=== PATIENT | male | born 1950 | race Caucasian/White ===

== ENCOUNTER 2018-11-16 11:31 | Outpatient (CLI) | payer MEDICARE, OTHER, SELFPAY ==
[2018-11-16 13:24] LABS: Calculated LDL 145; Cholesterol 237 mg/dL (50-200); HDL Cholesterol 81 mg/dL (40-60); TSH 3.56 uIU/mL (0.358-3.74); Triglyceride 58 mg/dL (30-150)
[2018-11-17 10:25] LABS: PSA, Screening 3.2 ng/ml (0-4.5)
== END 2018-11-16 11:51 ==
PROVIDERS: PCP Emergency Medicine; Visit Provider Emergency Medicine
DX: E03.9 Hypothyroidism, unspecified (principal); Z13.6 Encounter for screening for cardiovascular disorders; Z12.5 Encounter for screening for malignant neoplasm of prostate
CPT/HCPCS: 36415; 80061; 83721; 84153; 84443

== ENCOUNTER 2019-09-11 12:36 | Outpatient (CLI) | payer MEDICARE, OTHER, SELFPAY ==
[2019-09-13 20:04] LABS: SARS-CoV-2 RNA Undetected (Undetected); SARS-CoV-2 Specimen Source Nasopharynx
== END 2019-09-11 12:56 ==
PROVIDERS: PCP Emergency Medicine; Visit Provider Nurse Practitioner Family
DX: J02.9 Acute pharyngitis, unspecified (principal); Z11.59 Encounter for screening for other viral diseases
CPT/HCPCS: 87449; U0003

== ENCOUNTER → 2019-12-04 08:34 | Outpatient (BNVA) | payer MEDICARE, OTHER, SELFPAY | PROVIDERS: PCP Emergency Medicine; Referring Provider Emergency Medicine; Visit Provider Nurse Practitioner Gerontology | DX: N40.1 Benign prostatic hyperplasia with lower urinary tract symptoms (principal); R35.0 Frequency of micturition | CPT/HCPCS: 99204; 99215 ==

== ENCOUNTER 2019-12-11 08:02 | Outpatient (CLI) | payer MEDICARE, OTHER, SELFPAY ==
[2019-12-11 09:16] LABS: Calculated LDL 167 mg/dL (<100); Cholesterol 261 mg/dL (<200); HDL Cholesterol 84 mg/dL (40-60); TSH 2.59 uIU/mL (0.36-3.74); Triglyceride 53 mg/dL (<150)
[2019-12-12 09:16] LABS: PSA, Screening 3.3 ng/mL (0.0-4.5)
== END 2019-12-11 08:22 ==
PROVIDERS: PCP Emergency Medicine; Visit Provider Nurse Practitioner Gerontology
DX: E03.9 Hypothyroidism, unspecified (principal); N40.1 Benign prostatic hyperplasia with lower urinary tract symptoms; Z12.5 Encounter for screening for malignant neoplasm of prostate
CPT/HCPCS: 80061; 84153; 84443

== ENCOUNTER 2020-11-22 19:35 | Outpatient (REF) | payer MEDICARE, OTHER, SELFPAY ==
[2020-11-22 18:36] LABS: Calculated LDL 130 mg/dL (<100); Cholesterol 223 mg/dL (<200); HDL Cholesterol 83 mg/dL (40-60); TSH 1.35 uIU/mL (0.36-3.74); Triglyceride 52 mg/dL (<150)
[2020-11-25 10:13] LABS: PSA, Diagnostic 3.6 ng/mL (0.0-4.5)
== END 2020-11-22 19:36 | disposition home or self-care (01) ==
LOC: LBN 19:35
PROVIDERS: PCP Emergency Medicine; Visit Provider Emergency Medicine
DX: E78.5 Hyperlipidemia, unspecified (principal); E03.2 Hypothyroidism due to medicaments and other exogenous substances; N40.0 Benign prostatic hyperplasia without lower urinary tract symptoms
CPT/HCPCS: 80061; 84153; 84443

== ENCOUNTER 2020-11-28 02:38 | Outpatient (CLI) | payer MEDICARE, SELFPAY ==
--- NOTE | 2020-11-28 08:45 | DI.RAD_ITS ---
Exam(s) XR SHOULDER RT COMPLETE 2+V EXAM: XR SHOULDER RT COMPLETE 2+V CLINICAL HISTORY: right shoulder pain,M25.511. TECHNIQUE: 2D digital imaging was performed. COMPARISON: None FINDINGS: There is a dorsal fusion plate across healed fracture site in the right clavicle. No obvious hardwar e loosening no radiographic evidence of osteomyelitis. However, 1 of the more laterally located scre ws is not flush with the plate. Possibly significant. AC joint is not distracted. There is no radi ographic evidence of osteomyelitis. IMPRESSION: DATA REPOSITORY: RADIATION DOSE DELIVERED:
== END 2020-11-28 02:58 ==
PROVIDERS: PCP Emergency Medicine; Visit Provider Emergency Medicine
DX: M25.511 Pain in right shoulder (principal)
CPT/HCPCS: 73030

== ENCOUNTER → 2020-12-05 08:28 | Outpatient (BNVA) | payer MEDICARE, SELFPAY | PROVIDERS: PCP Emergency Medicine; Referring Provider Emergency Medicine; Visit Provider Nurse Practitioner Gerontology | DX: N40.0 Benign prostatic hyperplasia without lower urinary tract symptoms (principal) | CPT/HCPCS: 99213 ==

== ENCOUNTER 2020-12-17 16:20 | Outpatient (REF) | payer MEDICARE, SELFPAY ==
[2020-12-17 20:50] LABS: Abs Immature Grans 0.03 10^3/uL (0.0-0.06); Absolute Basophil Count 0.05 10^3/uL (0.0-0.2); Absolute Eosinophil Count 0.01 10^3/uL (0.0-0.7); Absolute Lymphocyte Count 3.09 10^3/uL (1.2-3.4); Absolute Monocyte Count 0.98 10^3/uL (0.1-0.8); Absolute Neutrophil Count 5.38 10^3/uL (1.2-6.7); Basophils % 0.5; Eosinophils % 0.1; HCT 39.9 % (40.0-50.0); HGB 13.2 g/dL (13.5-17.5); Immature Grans % 0.3; Lymphocytes % 32.4; MCH 29.9 pg (27.0-33.0); MCHC 33.1 % (32.0-36.0); MCV 90.5 fL (80-95); MPV 10.5 fL (8.0-11.0); Monocytes % 10.3; Neutrophils % 56.4; Nucleated RBC 0 %; Platelet Count 201 10^3/uL (130-400); RBC 4.41 10^6/uL (4.36-5.78); RDW 13.4 % (11.8-14.1); WBC 9.54 10^3/uL (4.4-10.8)
[2020-12-17 20:54] LABS: ESR 11 mm/hr (0-20)
[2020-12-17 21:07] LABS: ALT 130 U/L (16-63); AST 45 U/L (15-37); Albumin 3.5 g/dL (3.4-5.0); Alkaline Phosphatase 83 U/L (46-116); Amylase 80 U/L (25-115); Anion Gap 7.9 mmol/L (3-11); BUN 13 mg/dL (7-18); Bilirubin, Total 0.4 mg/dL (0.2-1.0); CO2 28.1 mmol/L (21.0-32.0); CREATININE 1.1 mg/dL (0.70-1.30); Calcium 8.4 mg/dL (8.5-10.1); Chloride 102 mmol/L (98-107); Glucose 89 mg/dL (74-106); Lipase 295 U/L (73-393); Potassium 4.4 mmol/L (3.5-5.1); Sodium 138 mmol/L (136-145); Total Protein 6.9 g/dL (6.4-8.2)
[2020-12-18 16:54] LABS: CRP, High Sensitivity >15.00 mg/L (See Note)
[2020-12-19 10:21] LABS: Lyme Ab w Rflx to Lyme Confirm Negative (Negative)
[2020-12-20 09:37] LABS: B. miyamotoi PCR Negative (Negative); Babesia divergens/MO-1 Negative (Negative); Babesia duncani Negative (Negative); Babesia microti Negative (Negative); Ehrlichia chaffeensis Negative (Negative); Ehrlichia ewingii/canis Negative (Negative); Ehrlichia muris eauclairensis Negative (Negative)
[2020-12-20 11:04] LABS: Anaplasma phagocytophilum Positive (Negative)
== END 2020-12-17 16:21 | disposition home or self-care (01) ==
LOC: LBN 16:20
PROVIDERS: PCP Emergency Medicine; Visit Provider Nurse Practitioner Family
DX: R51.9 Headache, unspecified (principal); R53.83 Other fatigue; R10.12 Left upper quadrant pain; A68.9 Relapsing fever, unspecified
CPT/HCPCS: 80053; 83690; 85652; 86141; 87798; 82150; 85025; 86618

== ENCOUNTER 2021-01-20 14:34 | Outpatient (CLI) | payer MEDICARE, SELFPAY ==
--- NOTE | 2021-01-20 11:15 | DI.RAD_ITS ---
Exam(s) XR WRIST LT COMPLETE EXAM: XR WRIST LT COMPLETE CLINICAL HISTORY: L wrist pain. TECHNIQUE: 2D digital imaging was performed. COMPARISON: No exams were available for comparison FINDINGS: No fractures distal radius and ulna no significant ulnar variance. Scaphoid appears unremarkable. O n the lateral view there is a round 2 millimeter calcific density seen just dorsal to the distal radi us. This of questionable significance. Possible accessory ossicle. No overlying soft tissue swelli ng. No carpal dislocation. There are moderate degenerative changes in the 1st carpometacarpal joint noted. IMPRESSION: DATA REPOSITORY: RADIATION DOSE DELIVERED:
== END 2021-01-20 14:35 | disposition home or self-care (01) ==
LOC: DIORS 14:34
PROVIDERS: PCP Emergency Medicine; Referring Provider Emergency Medicine; Visit Provider Student in an Organized Health Care Education/Training Program
DX: M25.532 Pain in left wrist (principal); M19.032 Primary osteoarthritis, left wrist; M25.511 Pain in right shoulder
CPT/HCPCS: 99213; 73110

== ENCOUNTER 2021-10-22 02:18 | Outpatient (CLI) | payer MEDICARE, SELFPAY ==
[2021-10-22 15:06] LABS: Source Nasal/Nares
[2021-10-23 01:23] LABS: COVID-19 PCR Negative (Negative)
== END 2021-10-22 02:19 | disposition home or self-care (01) ==
LOC: LBO 02:19
PROVIDERS: PCP Family Medicine; Visit Provider Podiatrist
DX: Z20.822 Contact with and (suspected) exposure to COVID-19 (principal); Z01.818 Encounter for other preprocedural examination
CPT/HCPCS: 87635; U0005

== ENCOUNTER 2021-10-24 07:22 | Day surgery (SDC) | payer MEDICARE, SELFPAY ==
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
[2021-10-24 07:30] VITALS: BP 123/86; PULSE 77; RESP 16; TEMP 36.3; O2SAT 97
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
[2021-10-24] MEDS: Lactated Ringers 1,000 ML 80 ML IV (07:56)
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
[2021-10-24 08:27] VITALS: BMI 24.3
[2021-10-24] MEDS: ceFAZolin 1 GM/50 ML BAG IVPB (09:25)
[2021-10-24] MEDS: Bupivacaine 0.5% Pres-Free 30 ML VIAL (09:39)
[2021-10-24] MEDS: Lidocaine 1% Pres-Free 30 ML VIAL (09:39)
[2021-10-24] MEDS: Dexamethasone 4 MG/ML VIAL (09:52)
--- NOTE | 2021-10-24 10:07 | W.PM.DSUDISC ---
Discharge Plan Disposition Patient Disposition: HOME Condition: Good Discharge Details Reason For Visit: Correction bunionette deformity right foot Attending Provider: Mychal Garcia Primary Care Provider: Jameel Levy Home Meds and New Rx's Prescriptions: No Action levothyroxine [Synthroid] 125 mcg tablet 125 mcg PO DAILY Qty: 90 3RF rosuvastatin 20 mg tablet 20 mg PO DAILY Qty: 90 3RF Discharge Instructions Activity:: Elevate Remove Dressings/Wound Care:: Do Not Remove Shower/Bathe:: Cover Diet:: Normal Diet Discharge Orders Discharge Orders: Discharge Order (Routine); Ordered 10/24/21 Ordered By: Mychal Garcia DS: Diagnosis Discharge Diagnosis (1) Bunionette of right foot: Start date: 10/24/21 Start time: 09:07 Status: Acute
--- NOTE | 2021-10-24 10:08 | W.PM.OP ---
Date of service: 10/24/21 Time of Service: 09:08 Operative Note Operative Note DATE OF PROCEDURE: 10/24/21 PRE-OP DIAGNOSIS: Bunionette deformity right foot PROCEDURE: Partial fifth metatarsal head resection right foot SURGEON: Mychal Garcia Refer to Anesthesia Record ESTIMATED BLOOD LOSS: 1 TOURNIQUET TIME: 18 Indications: 71-year-old male with chronic pain over the lateral aspect of his right fifth metatarsal head where a bunionette deformity is noted. Pain is interfering with shoe gear, daily activities and enjoyment of life. Nonoperative treatments have failed to provide sufficient relief of symptoms. He understands risk and complications of surgery pertaining to pain, scarring, infection, nerve injury, ongoing discomfort in the region potentially requiring revisional procedure. All questions have been answered in detail. Informed consent has been obtained. Procedure Description: Yuri was brought to the operative suite placed in the supine position with the right foot prepped and draped in the usual sterile podiatric fashion. Anesthesia performed a block of the right fifth ray utilizing 10 cc 50: 50 mixture 1% lidocaine plain, 0.5% Marcaine plain. Timeout was performed for safe surgery. The right foot was exsanguinated and a well-padded ankle tourniquet inflated to 250 mmHg. Attention was directed to the dorsal lateral aspect of the right fifth MPJ where a 3 cm incision was made lateral parallel to the extensor tendon. The incision was deepened in controlled depth fashion with hemostasis acquired with electrocautery if needed. Dissection was carried down to the joint capsule which was incised along its lateral dorsal component. The joint capsule was reflected and a large medial hyperostosis from the fifth metatarsal head was noted. With osteotome and mallet the lateral enlargement was resected. All rough and bony edges were rasped smooth. Excellent correction was noted upon bony resection. Copious irrigation was performed. The joint capsule was repaired with simple interrupted suture 3-0 Vicryl. The skin was then coapted with simple interrupted suture of 4-0 nylon. 4 mg of dexamethasone phosphate deeply infused around the incision. Xeroform gauze fluff compression dressings were applied. Tourniquet was released at 18 minutes with vascularity returning immediately to all toes. Yuri left the OR with vital signs stable vascular status intact sharp and sponge counts were correct. He will be followed by myself in the office next week.
[2021-10-24 10:10] VITALS: BP 101/75; PULSE 63; RESP 16; TEMP 36.2; O2SAT 98
--- NOTE | 2021-10-24 10:17 | W.ANESPOSTOP ---
Postoperative Evaluation Date, Time and Location Date Performed: 10/24/21 Time Performed: 10:18 Patient Location: Day Surgery Unit Vital Signs Most Recent Imported Vital Signs: Most Recent Vital Signs Temp Pulse Resp BP Pulse Ox 36.3 C L 77 16 123/86 97 10/24/21 07:30 10/24/21 07:30 10/24/21 07:30 10/24/21 07:30 10/24/21 07:30 Most Recent Manually Entered Vital Signs: Adult Blood Pressure: 110/66 Heart Rate: 66 Respirations: 10 Oxygen Saturation (%): 98 Temperature (C): 36.3 C Pain Score (0-10 Scale): 0 Assessment Mental Status: Awake (Alert & Oriented to Patient Baseline) Airway and Respiratory Function: Patent airway with normal (patient baseline) respiratory exam Cardiovascular Function: Hemodynamically Stable Hydration Status: Adequately Hydrated Nausea & Vomiting: No Nausea or Vomiting Pain: Pt. Denies Any Pain Peripheral Nerve Block: Patient did not receive a nerve block
[2021-10-24 10:19] VITALS: BP 110/66; PULSE 66; RESP 10; TEMPC 36.3; O2SAT 98
--- NOTE | 2021-10-24 10:21 | W.ANESPOSTOP ---
Postoperative Evaluation Date, Time and Location Date Performed: 10/24/21 Time Performed: 09:21 Patient Location: Day Surgery Unit Vital Signs Most Recent Imported Vital Signs: Most Recent Vital Signs Temp Pulse Resp BP Pulse Ox 36.3 C L 77 16 123/86 97 10/24/21 07:30 10/24/21 07:30 10/24/21 07:30 10/24/21 07:30 10/24/21 07:30 Most Recent Vital Signs Temp Pulse Resp BP Pulse Ox 36.3 C L 77 16 123/86 97 10/24/21 07:30 10/24/21 07:30 10/24/21 07:30 10/24/21 07:30 10/24/21 07:30 Assessment Mental Status: Awake (Alert & Oriented to Patient Baseline) Airway and Respiratory Function: Patent airway with normal (patient baseline) respiratory exam Cardiovascular Function: Hemodynamically Stable Hydration Status: Adequately Hydrated Nausea & Vomiting: No Nausea or Vomiting Pain: Pt. Denies Any Pain Peripheral Nerve Block: Other (local by surgeon)
[2021-10-24 10:40] VITALS: BP 107/75; PULSE 59; RESP 18; TEMP 36.2; O2SAT 99
== END 2021-10-24 11:05 | disposition home or self-care (01) ==
PROVIDERS: PCP Family Medicine; Visit Provider Podiatrist
PROC: (CPT 28288; principal; 2021-10-24 09:30)
DX: M21.621 Bunionette of right foot (principal); N40.1 Benign prostatic hyperplasia with lower urinary tract symptoms; E78.5 Hyperlipidemia, unspecified; E03.9 Hypothyroidism, unspecified
CPT/HCPCS: 28110; J0690; J1100; J1885; J2405

== ENCOUNTER → 2021-12-18 10:48 | Outpatient (BNVA) | payer MEDICARE, SELFPAY | PROVIDERS: PCP Family Medicine; Referring Provider Emergency Medicine; Visit Provider Nurse Practitioner Gerontology | DX: N40.1 Benign prostatic hyperplasia with lower urinary tract symptoms (principal); R35.0 Frequency of micturition; R35.1 Nocturia | CPT/HCPCS: 51798; 99214 ==

== ENCOUNTER 2021-12-23 08:49 | Outpatient (CLI) | payer MEDICARE, SELFPAY ==
[2021-12-23 13:14] LABS: Calculated LDL 115 mg/dL (<100); Cholesterol 214 mg/dL (<200); HDL Cholesterol 88 mg/dL (40-60); TSH (W/Ref FT4) 3.66 uIU/mL (0.36-3.74); Triglyceride 58 mg/dL (<150)
== END 2021-12-23 08:50 | disposition home or self-care (01) ==
LOC: LOS 08:50
PROVIDERS: PCP Family Medicine; Referring Provider Family Medicine; Visit Provider Family Medicine
DX: E78.5 Hyperlipidemia, unspecified (principal); E03.9 Hypothyroidism, unspecified
CPT/HCPCS: 36415; 80061; 84443

== ENCOUNTER → 2022-03-03 01:40 | Outpatient (CLI) | payer MEDICARE, SELFPAY ==
--- NOTE | 2022-03-03 07:15 | DI.US_ITS ---
Exam(s) US HERNIA EXAM: US HERNIA CLINICAL HISTORY: evaluate right inguinal hernia,k40.90. TECHNIQUE: Ultrasound was performed using standard protocol. COMPARISON: No exams were available for comparison FINDINGS: Sonographic assessment utilizing grayscale and color Doppler imaging was performed and targeted to th e area of clinical concern. Sonographic findings show a fat containing right inguinal hernia. The opening is approximately 0.7 c m. There is a right inguinal lymph node measuring 0.8 x 0.9 x 0.5 cm. It is grossly unremarkable. IMPRESSION: Findings most suggestive of a small fat containing right inguinal hernia. DATA REPOSITORY:
== END ==
PROVIDERS: PCP Family Medicine; Visit Provider Nurse Practitioner Family
DX: K40.90 Unilateral inguinal hernia, without obstruction or gangrene, not specified as recurrent (principal)
CPT/HCPCS: 76857

== ENCOUNTER → 2022-03-25 10:55 | Outpatient (BNVA) | payer MEDICARE, SELFPAY | PROVIDERS: PCP Family Medicine; Referring Provider Family Medicine; Visit Provider Nurse Practitioner Gerontology | DX: N40.1 Benign prostatic hyperplasia with lower urinary tract symptoms (principal); R35.1 Nocturia | CPT/HCPCS: 51798; 99214 ==

== ENCOUNTER → 2022-03-25 13:56 | Outpatient (BNVA) | payer MEDICARE, SELFPAY | PROVIDERS: PCP Family Medicine; Referring Provider Family Medicine; Visit Provider Surgery | DX: K46.9 Unspecified abdominal hernia without obstruction or gangrene (principal) | CPT/HCPCS: 51798; 99214 ==

== ENCOUNTER 2022-05-08 07:15 | Day surgery (SDC) | payer MEDICARE, SELFPAY ==
--- NOTE | 2022-05-07 14:47 | PDOC.DSDIS_ITS ---
Date of service: 05/08/22 Time of Service: 10:48 Discharge Plan Disposition Patient Disposition: HOME Condition: Good Discharge Details Reason For Visit: Inguinal herniorrhaphy Attending Provider: Santiago Cancino Primary Care Provider: Jameel Levy Home Meds and New Rx's Prescriptions: Continued rosuvastatin 20 mg tablet 20 mg PO DAILY Qty: 90 3RF levothyroxine 125 mcg tablet See Rx Instructions .ROUTE .COMPLEX Qty: 90 1RF Dose Instruction: TAKE 1 TABLET BY MOUTH DAILY Rx Instructions: TAKE 1 TABLET BY MOUTH DAILY tamsulosin [Flomax] 0.4 mg capsule 0.4 mg PO DAILY Qty: 90 3RF Discharge Instructions Instructions: Inguinal Hernia Repair (DC) Additional Instructions: 1. Resume all of your medications. 2. Use your hydrocodone/acetaminophen as needed for severe pain. 3. Okay to use tylenol and ibuprofen over the counter as needed. 4. Leave bandage in place for 24 hours, then remove. 5. Shower with warm soapy water. Pat dry. Use a bandaid if needed to protect your clothing. 6. No soaking or tub baths until I see you in the office. 7. No heavy lifting until I see you in the office. 8.Call the office (or go directly to the emergency room after hours) if you notice any of the following: Develop chills (warm to touch), or if you have a thermometer and your temperature is above 101 Difficulty breathing or difficultly swallowing Persistent vomiting Any bleeding ? exceeding one tablespoon 6. Call your physician if the site where your intravenous was started becomes red, swollen, painful, and warm to touch. Referrals: Santiago Cancino MD [ [facility] STAFF PHYSICIAN] - Remove Dressings/Wound Care:: 24 hours Shower/Bathe:: 24 hours Activity:: No heavy lifting DS: Diagnosis Discharge Diagnosis (1) Inguinal hernia: Status: Acute Asessment and Plan: Open herniorraphy today Follow up with me in the office for routine post-operative visit
--- NOTE | 2022-05-07 14:49 | ROE_ITS ---
Date of service: 05/08/22 Time of Service: 12:17 Operative Note Operative Note DATE OF PROCEDURE: 05/08/22 PRE-OP DIAGNOSIS: Right-sided inguinal hernia POST-OP DIAGNOSIS: same PROCEDURE: Open right inguinal herniorrhaphy with mesh SURGEON: Santiago Cancino [employer] MARINE: Sanjuana Cristobal ANESTHESIA TYPE: Local By Surgeon and General LMA/ETT Refer to Anesthesia Record ESTIMATED BLOOD LOSS: 50 PATHOLOGY: none sent COMPLICATIONS: None Patient was transported to: PACU Patient's condition: stable Implants: Mesh patch Indications: Yuri is a 72-year-old male with a mildly symptomatic right-sided inguinal hernia Procedure Description: I began by confirming the correct site with the patient. Next, after induction of general anesthesia and a tap block by that service, I prepped and draped in the usual fashion. I began by making an oblique incision over the right inguinal region. I dissected down through the skin to the deep fascia. Next, I incised the fascia along the length of the inguinal canal to the external ring. The ilioinguinal nerve was tethered into the external ring. In an effort to minimize any kind of postoperative neuralgia, I divided the nerve. Once this was complete, I bluntly dissected the shelving edge of the inguinal ligament down towards the pubic tubercle. Here, I encircled all cord structures with a [place] drain. Next, I began dissecting the specific cord structures. Great care was taken to spare the vas deferens and the blood supply to the testicle. Next, I isolated the hernia sac from the other inguinal structures. I reduced it back to its normal anatomic position. I then reconstructed the posterior floor of the inguinal canal with a large mesh patch. I started by fixing it to the pubic tubercle. Next, I used Prolene sutures to affix it to the shelving edge of the inguinal ligament and the conjoined tendon. Laterally I tacked it to the transversalis fascia and reconstructed an internal ring without any strain on the cord structures. Once this was complete, I irrigated the surgical field. It appeared hemostatic. I then closed the anterior portion of the fascia to reconstruct the front wall of the inguinal canal. I did this with interrupted Vicryl stitches. Once again, I irrigated the surgical field and inspected for hemostasis. Finally, I approximated the superficial fascia and the deep layers of the skin with absorbable suture. Skin was closed with absor bable sutures. Bandages were applied, the patient was awakened and transferred to the recovery unit.
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
[2022-05-08] VITALS (9 sets, daily range): BP systolic 78–123; BP diastolic 49–79; PULSE 60–72; RESP 11–18; TEMP 36.1–36.5; O2SAT 95–98; BMI 24.2
[2022-05-08] MEDS: Acetaminophen 500 MG TAB 1000 MG PO (07:59)
[2022-05-08] MEDS: Celecoxib 200 MG CAP PO (07:59)
[2022-05-08] MEDS: Gabapentin 300 MG CAP 600 MG PO (08:00)
[2022-05-08] MEDS: Lactated Ringers 1,000 ML 80 ML IV (08:00)
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
[2022-05-08] MEDS: ceFAZolin 2 GM/50 ML BAG IVPB (09:41)
--- NOTE | 2022-05-08 09:58 | W.ANESNERVE ---
Nerve Block Single Injection Procedure Date and Time Date Performed: 05/08/22 Procedure Start: 09:43 Location Where Procedure Performed Procedure Location: Operating Room Procedure Stop: 09:48 Reason Performed: Postoperative Analgesia Requesting Provider: Santiago Cancino Timeout Performed Timeout Performed: Yes Monitoring Used ECG, Blood Pressure, SpO2 and ETCO2 Sterility Sterility: Hand Hygiene, Surgical Cap, Surgical Mask, Sterile Gloves and Chlorhexidine Sedation Given During Procedure Sedation Given (Indicate Dose Given): No Sedation given Patient Mental Status Patient Mental Status: Performed under general anesthesia Nerve Block 1st Nerve Block: Laterality: Right Block Type: TAP Unilateral Needle / Catheter Used: 100mm SonoPlex II Local Anesthetic Bolus (Indicate Dose Given): None, Injected in 3-5ml increments after negative blood aspiration and Bupivacaine 0.25% Dose:: 30 ml Additives (Indicate Dose Given): None Ultrasound: Sterile probe cover and gel used Ultrasound Image Saved?: Yes Nerve Stimulator: Not Used Paresthesia: None Procedure Tolerated: No Complications and Patient tolerated well Procedure Outcome: Successful Performed By: Tomas Howell
[2022-05-08] MEDS: Bupivacaine 0.5% Pres-Free W/EPI 10 ML VIAL (10:05)
[2022-05-08] MEDS: ePHEDrine 25 MG/5 ML Syringe IVP ×2 (11:07→11:16)
--- NOTE | 2022-05-08 16:56 | W.ANESPOSTOP ---
Postoperative Evaluation Date, Time and Location Date Performed: 05/08/22 Time Performed: 16:57 Patient Location: Day Surgery Unit Vital Signs Most Recent Imported Vital Signs: Most Recent Vital Signs Temp Pulse Resp BP Pulse Ox 36.1 C L 60 16 112/79 98 05/08/22 12:15 05/08/22 12:15 05/08/22 12:15 05/08/22 12:15 05/08/22 12:15 Pain Score Most Recent Pain Score: Most Recent Pain Score Pain Level 0 05/08/22 12:15 Assessment Mental Status: Awake (Alert & Oriented to Patient Baseline) Airway and Respiratory Function: Patent airway with normal (patient baseline) respiratory exam Cardiovascular Function: Hemodynamically Stable Hydration Status: Adequately Hydrated Nausea & Vomiting: No Nausea or Vomiting Pain: Pt. Denies Any Pain Peripheral Nerve Block: Regional nerve block not resolved at time of post operative discharge Postoperative Comments:: Seen earlier today
== END 2022-05-08 11:06 | disposition home or self-care (01) ==
PROVIDERS: PCP Family Medicine; Visit Provider Surgery
PROC: (CPT 49505; principal; 2022-05-08 09:00)
DX: K40.90 Unilateral inguinal hernia, without obstruction or gangrene, not specified as recurrent (principal); E78.00 Pure hypercholesterolemia, unspecified; E03.9 Hypothyroidism, unspecified
CPT/HCPCS: 49505; 76942; C1781; J0690; J1100; J2405; J2704

== ENCOUNTER → 2022-05-20 13:11 | Outpatient (BNVA) | payer MEDICARE, SELFPAY | PROVIDERS: PCP Family Medicine; Referring Provider Family Medicine; Visit Provider Surgery | DX: Z48.817 Encounter for surgical aftercare following surgery on the skin and subcutaneous tissue (principal); K40.90 Unilateral inguinal hernia, without obstruction or gangrene, not specified as recurrent ==

== ENCOUNTER 2022-12-24 09:56 | Outpatient (CLI) | payer MEDICARE, SELFPAY ==
[2022-12-24 12:50] LABS: ALT 29 U/L (16-63); AST 25 U/L (15-37); Albumin 4.2 g/dL (3.4-5.0); Alkaline Phosphatase 50 U/L (46-116); Bilirubin, Direct 0.1 mg/dL (0.0-0.2); Bilirubin, Total 0.6 mg/dL (0.2-1.0); TSH (W/Ref FT4) 3.84 uIU/mL (0.36-3.74); Total Protein 7.4 g/dL (6.4-8.2)
[2022-12-24 13:25] LABS: FREE T4 1.16 ng/dL (0.76-1.46)
== END 2022-12-24 09:57 | disposition home or self-care (01) ==
LOC: LOS 09:57
PROVIDERS: PCP Family Medicine; Referring Provider Family Medicine; Visit Provider Family Medicine
DX: E03.9 Hypothyroidism, unspecified (principal); E78.5 Hyperlipidemia, unspecified; G72.89 Other specified myopathies
CPT/HCPCS: 36415; 80076; 84439; 84443

== ENCOUNTER → 2023-02-03 13:54 | Outpatient (BNVA) | payer MEDICARE, SELFPAY | PROVIDERS: PCP Family Medicine; Referring Provider Family Medicine; Visit Provider Nurse Practitioner Gerontology | DX: N40.1 Benign prostatic hyperplasia with lower urinary tract symptoms (principal); R39.89 Other symptoms and signs involving the genitourinary system; N52.9 Male erectile dysfunction, unspecified | CPT/HCPCS: 51798; 99213 ==

== ENCOUNTER 2023-02-09 20:03 | Emergency (ER) | payer MEDICARE, SELFPAY ==
[2023-02-09] VITALS (28 sets, daily range): BP systolic 119–134; BP diastolic 69–83; PULSE 73–100; RESP 8–28; TEMP 36.9; O2SAT 96–100
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
[2023-02-09] MEDS: Normal Saline 1,000 ML 1000 ML IV (20:30)
[2023-02-09 20:40] LABS: Abs Immature Grans 0.09 10^3/uL (0.0-0.06); Absolute Basophil Count 0.05 10^3/uL (0.0-0.2); Absolute Eosinophil Count 0.05 10^3/uL (0.0-0.7); Absolute Lymphocyte Count 1.23 10^3/uL (1.2-3.4); Absolute Monocyte Count 0.88 10^3/uL (0.1-0.8); Basophils % 0.4; Eosinophils % 0.4; HCT 43.4 % (40.0-50.0); HGB 14.6 g/dL (13.5-17.5); Immature Grans % 0.7; Lymphocytes % 9.1; MCH 30.2 pg (27.0-33.0); MCHC 33.6 % (32.0-36.0); MCV 90 fL (80-95); MPV 9.6 fL (8.0-11.0); Monocytes % 6.5; Neutrophils % 82.9; Platelet Count 215 10^3/uL (130-400); RBC 4.83 10^6/uL (4.36-5.78); WBC 13.57 10^3/uL (4.4-10.8)
[2023-02-09 20:43] LABS: Absolute Neutrophil Count 11.25 10^3/uL (1.2-6.7)
[2023-02-09] MEDS: Normal Saline - Diluent 50 ML VIAL IJ (20:52)
[2023-02-09] MEDS: Omnipaque 350 MG/ML 100 ML BTL IJ (20:52)
[2023-02-09] MEDS: Normal Saline Flush 10 ML SYR IVP (20:52)
[2023-02-09 20:57] LABS: ALT 142 U/L (16-63); AST 163 U/L (15-37); Albumin 4.4 g/dL (3.4-5.0); Alkaline Phosphatase 54 U/L (46-116); Anion Gap 8.6 mmol/L (3-11); BUN 17 mg/dL (7-18); Bilirubin, Total 0.4 mg/dL (0.2-1.0); CO2 27.4 mmol/L (21.0-32.0); CREATININE 1.1 mg/dL (0.70-1.30); Calcium 8.6 mg/dL (8.5-10.1); Chloride 97 mmol/L (98-107); Estimated GFR 72.22 (mL/min/1.73m2); Glucose 131 mg/dL (74-106); Potassium 3.3 mmol/L (3.5-5.1); Sodium 133 mmol/L (136-145); Total Protein 7.5 g/dL (6.4-8.2)
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
[2023-02-09] MEDS: Ketorolac 15 MG/ML VIAL IVP (21:39)
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
== END 2023-02-09 22:57 | disposition home or self-care (01) ==
PROVIDERS: Emergency Provider Emergency Medicine Emergency Medical Services; PCP Family Medicine
DX: S22.31XA Fracture of one rib, right side, initial encounter for closed fracture (principal); S42.101A Fracture of unspecified part of scapula, right shoulder, initial encounter for closed fracture; V28.49XA Other motorcycle driver injured in noncollision transport accident in traffic accident, initial encounter
CPT/HCPCS: 74177; 76604; 76705; 76857; 80053; 96361; 96374; 99285; 70450; 71260; 72125; 83735; 85025; 99284; J1885; J3490

== ENCOUNTER → 2023-09-29 10:48 | Outpatient (CLI) | payer MEDICARE, SELFPAY ==
--- NOTE | 2023-09-29 10:30 | DI.RAD_ITS ---
Exam(s) XR SHOULDER RT COMPLETE 2+V EXAM: XR SHOULDER RT COMPLETE 2+V CLINICAL HISTORY: Worsening pain M25.511 PAIN RT SHOULDER. TECHNIQUE: 2D digital imaging was performed of the right shoulder. Five images were obtained. AP, Grashey, Y-view and axillary views were obtained. COMPARISON: CR XR SHOULDER RT COMPLETE 2+V from 11/28/2020 FINDINGS: BONES: No acute fracture is present. No bony destructive lesion is seen. Old healed right rib fractur es. Plate and screws are again seen in the distal clavicle. There is a bony protuberance inferior t o the glenoid not present on the prior examination. It appears to arise from the lateral scapula. I t is well corticated and appears old. JOINTS: No dislocation present. The acromioclavicular and glenohumeral joints are well maintained. SOFT TISSUE: Normal. IMPRESSION: No acute abnormality. If there is concern for internal derangement, an MRI should be considered for further evaluation. DATA REPOSITORY: RADIATION DOSE DELIVERED:
== END ==
PROVIDERS: PCP Family Medicine; Visit Provider Nurse Practitioner Family
DX: M25.511 Pain in right shoulder (principal)
CPT/HCPCS: 73030

== ENCOUNTER → 2023-10-28 03:53 | Outpatient (CLI) | payer MEDICARE, SELFPAY ==
--- NOTE | 2023-10-28 07:45 | DI.MRI_ITS ---
Exam(s) MR UPPER JOINT RT WO EXAM: MR UPPER JOINT RT WO CLINICAL HISTORY: rt shoulder pain,m25.511 TECHNIQUE: Multiplanar multisequence MRI of the shoulder was performed. COMPARISON: CR XR SHOULDER RT COMPLETE 2+V from 09/29/2023 FINDINGS: Some artifact is seen from ipsilateral dorsal clavicular plate. MARROW:There is no evidence of fracture, Hill-Sachs deformity, nor ominous osseous lesions. GLENOHUMERAL JOINT: No joint effusion nor obvious loose intra-articular bodies. No chondral defects. No osteophytes. No degenerative subarticular cysts. ROTATOR CUFF MECHANISM: AC JOINT/ACROMIUM: Moderate degenerative changes in the AC joint. Cannot assess for os acromiale due to the artifact from the dorsal fixation plate in the clavicle.. Supraspinatus: There is signal abnormality consistent with articular side partial thickness tearing. On 1 image there is a subtle suggestion of a small full-thickness tear. There is no fluid in the palmer bacromial-subdeltoid bursa. No muscle atrophy. Infraspinatus: There is tendinosis signal in the more anterior of the infraspinatus tendon fibers and partial-thickness tearing on the articular side. No muscle atrophy. Teres Minor: Intact. No evidence of tear nor muscle atrophy. Subscapularis/anterior cuff: Intact. No abnormal signal at the level of the multipennate insertional fibers. No significant tear nor atrophy. BICEPS TENDON: Exhibits normal position within the intertubercular groove. No evidence of tear. No tenosynovitis. LABRUM: There is no abnormal signal in the superior labrum posterior to the biceps insertion. There appears to be some tearing of the posterior labrum. Anterior labrum appears intact. Inferior labrum intact. Inferior glenohumeral ligament appears intact. IMPRESSION: 1. There is partial-thickness tearing of the supraspinatus and infraspinatus tendons. The findings a re superimposed upon tendinitis signal. No retraction. No atrophy. 2. Biceps tendon appears intact and nondisplaced. 3. Subtle suggestion of some tearing in the posterior labrum. No evidence of paralabral cyst. 4. No evidence of glenohumeral joint effusion. Minimal degenerative changes. Calcific density seen in the inferior recess region on the recent plain films is difficult to identify on this MRI study. 5. Artifact from dorsal fusion plate in the ipsilateral clavicle noted. DATA REPOSITORY:
== END ==
PROVIDERS: PCP Family Medicine; Visit Provider Nurse Practitioner Family
DX: M25.511 Pain in right shoulder (principal)
CPT/HCPCS: 73221

== ENCOUNTER → 2023-11-16 13:31 | Outpatient (BNVA) | payer MEDICARE, SELFPAY | PROVIDERS: PCP Family Medicine; Referring Provider Family Medicine; Visit Provider Student in an Organized Health Care Education/Training Program | DX: M75.101 Unspecified rotator cuff tear or rupture of right shoulder, not specified as traumatic (principal) | CPT/HCPCS: 99214 ==

== ENCOUNTER 2023-12-30 08:52 | Outpatient (CLI) | payer MEDICARE, SELFPAY ==
[2023-12-30 12:36] LABS: Anion Gap 7.2 mmol/L (3-11); BUN 14 mg/dL (7-18); CO2 30.8 mmol/L (21.0-32.0); Calculated LDL 114 mg/dL (<100); Chloride 103 mmol/L (98-107); Cholesterol 208 mg/dL (<200); Estimated GFR 80.47 (mL/min/1.73m2); Glucose 76 mg/dL (74-106); HDL Cholesterol 84 mg/dL (40-60); Potassium 4.1 mmol/L (3.5-5.1); Sodium 141 mmol/L (136-145); TSH (W/Ref FT4) 2.43 uIU/mL (0.36-3.74); Triglyceride 52 mg/dL (<150)
[2023-12-31 10:43] LABS: Lyme Ab w Rflx to Lyme Confirm Negative (Negative)
[2024-01-02 00:02] LABS: Anaplasma phagocytophilum Negative (Negative); B. miyamotoi PCR Negative (Negative); Babesia divergens/MO-1 Negative (Negative); Babesia duncani Negative (Negative); Babesia microti Negative (Negative); Ehrlichia chaffeensis Negative (Negative); Ehrlichia ewingii/canis Negative (Negative); Ehrlichia muris eauclairensis Negative (Negative)
== END 2023-12-30 08:53 | disposition home or self-care (01) ==
LOC: LOS 08:52
PROVIDERS: PCP Family Medicine; Visit Provider Family Medicine
DX: R53.83 Other fatigue (principal); E78.5 Hyperlipidemia, unspecified; E87.1 Hypo-osmolality and hyponatremia; E03.9 Hypothyroidism, unspecified
CPT/HCPCS: 36415; 80048; 80061; 87798; 84443; 86618

== ENCOUNTER → 2024-02-02 13:28 | Outpatient (BNVA) | payer MEDICARE, SELFPAY | PROVIDERS: PCP Family Medicine; Visit Provider Nurse Practitioner Gerontology | DX: N40.1 Benign prostatic hyperplasia with lower urinary tract symptoms (principal); N39.43 Post-void dribbling; N52.9 Male erectile dysfunction, unspecified | CPT/HCPCS: 51798; 99214 ==

== ENCOUNTER → 2024-06-13 08:25 | Outpatient (BNVA) | payer MEDICARE, SELFPAY | PROVIDERS: PCP Family Medicine; Referring Provider Family Medicine; Visit Provider Surgery | DX: R10.31 Right lower quadrant pain (principal) | CPT/HCPCS: 99214 ==

== ENCOUNTER 2024-06-21 02:14 | Outpatient (CLI) | payer MEDICARE, SELFPAY ==
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
== END 2024-06-21 02:34 ==
LOC: DI 02:14
PROVIDERS: PCP Family Medicine; Visit Provider Surgery
DX: R19.09 Other intra-abdominal and pelvic swelling, mass and lump
CPT/HCPCS: 76857

== ENCOUNTER 2024-09-15 00:48 | Outpatient (CLI) | payer MEDICARE, SELFPAY ==
[2024-09-16 11:31] LABS: HIV-1/2 Ag & Ab Screen Negative (Negative)
[2024-09-18 12:00] LABS: HBs Antibody, Quant <3.1 mIU/mL (See Note); Hep B Surface Ab Negative (See Note); Hepatitis B Core Antibody Negative (Negative); Hepatitis B Surface Antigen Negative (Negative)
== END 2024-09-15 00:49 | disposition home or self-care (01) ==
LOC: LBO 00:49
PROVIDERS: PCP Family Medicine; Visit Provider Family Medicine
DX: Z11.59 Encounter for screening for other viral diseases (principal); Z00.00 Encounter for general adult medical examination without abnormal findings
CPT/HCPCS: 36415; 86704; 86706; 87340; 87389

== ENCOUNTER → 2024-10-04 09:55 | Outpatient (BNVA) | payer MEDICARE, SELFPAY | PROVIDERS: PCP Family Medicine; Referring Provider Family Medicine; Visit Provider Surgery | DX: R10.31 Right lower quadrant pain (principal) | CPT/HCPCS: 20552; J3301 ==

== ENCOUNTER 2025-01-03 04:07 | Outpatient (CLI) | payer MEDICARE, SELFPAY ==
[2025-01-03 12:20] LABS: TSH (W/Ref FT4) 1.53 uIU/mL (0.36-3.74)
== END 2025-01-03 04:08 | disposition home or self-care (01) ==
LOC: LBO 04:07
PROVIDERS: PCP Family Medicine; Visit Provider Family Medicine
DX: E03.9 Hypothyroidism, unspecified (principal)
CPT/HCPCS: 36415; 84443

== ENCOUNTER → 2025-02-01 10:55 | Outpatient (BNVA) | payer MEDICARE, SELFPAY | PROVIDERS: PCP Family Medicine; Referring Provider Family Medicine; Visit Provider Surgery | DX: R10.31 Right lower quadrant pain (principal) | CPT/HCPCS: 99213 ==

== ENCOUNTER 2025-02-12 09:18 | Outpatient (CLI) | payer MEDICARE, SELFPAY ==
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
== END 2025-02-12 09:38 ==
LOC: DI 09:18
PROVIDERS: PCP Family Medicine; Visit Provider Physician Assistant Medical
DX: M79.642 Pain in left hand (principal)
CPT/HCPCS: 73130

== ENCOUNTER → 2025-04-18 01:19 | Outpatient (CLI) | payer MEDICARE, SELFPAY ==
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
--- NOTE | 2025-04-18 09:35 | DI.RAD_ITS ---
Exam(s) XR KNEE RT 3V AP,LAT,BURAK XR KNEE LT 3V AP,LAT,BURAK EXAM: XR KNEE RT 3V AP,LAT,BURAK CLINICAL HISTORY: worsening RT KNEE PAIN, M25.561. TECHNIQUE: 2D digital imaging was performed. Three views of both knees. COMPARISON: CR XR KNEE LT 3V AP,LAT,BURAK from 04/18/2025 FINDINGS: BONES: No acute fracture is present. No bony destructive lesion is seen. JOINTS: The knee is normally aligned. No joint effusion is seen. The joint spaces are maintained. SOFT TISSUE: Mild vascular calcifications. IMPRESSION: Unremarkable radiographs of the bilateral knees. DATA REPOSITORY: RADIATION DOSE DELIVERED:
== END ==
LOC: DI 01:19
PROVIDERS: PCP Family Medicine; Visit Provider Nurse Practitioner Family
DX: M25.561 Pain in right knee (principal); M25.562 Pain in left knee; M75.101 Unspecified rotator cuff tear or rupture of right shoulder, not specified as traumatic
CPT/HCPCS: 73562; 73030

== ENCOUNTER → 2025-05-29 10:28 | Outpatient (BNVA) | payer MEDICARE, SELFPAY | PROVIDERS: PCP Family Medicine; Visit Provider Nurse Practitioner Gerontology | DX: N40.1 Benign prostatic hyperplasia with lower urinary tract symptoms (principal); N39.43 Post-void dribbling; R39.12 Poor urinary stream; R35.0 Frequency of micturition; N52.9 Male erectile dysfunction, unspecified; R39.9 Unspecified symptoms and signs involving the genitourinary system | CPT/HCPCS: 99214; 51798 ==